=== PATIENT | female | born 2005 | race African-American/Black ===

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

== ENCOUNTER 2024-08-08 01:30 | Outpatient (CLI) | payer OTHER ==
[2024-08-08 01:39] VITALS: BP 119/61
[2024-08-08 03:15] VITALS: BP 99/57
[2024-08-08 06:18] VITALS: BP 91/52
== END 2024-08-08 06:31 | disposition other institution (70) ==
LOC: M LDO 01:30
PROVIDERS: ATTEND Specialist
DX: O47.03 False labor before 37 completed weeks of gestation, third trimester (principal); O99.343 Other mental disorders complicating pregnancy, third trimester; R45.851 Suicidal ideations; Z3A.28 28 weeks gestation of pregnancy
CPT/HCPCS: 59025; G0463

== ENCOUNTER 2024-08-08 06:35 | Emergency (ER) | payer OTHER ==
[2024-08-08 07:32] LABS: HEMATOCRIT 32.9 % (36.0-47.0); MEAN CORPUSCULAR HEMOGLOBIN 32.2 pg (27.0-33.0); MEAN CORPUSCULAR HGB CONC 33.4 g/dl (32.0-36.5); MEAN CORPUSCULAR VOLUME 96.2 fl (80.0-96.0); PLATELET COUNT, AUTOMATED 194 10^3/uL (150-450); RED BLOOD COUNT 3.42 10^6/uL (4.00-5.40); WHITE BLOOD COUNT 5.5 10^3/uL (4.0-10.0)
[2024-08-08 07:36] LABS: ETHYL ALCOHOL (ETHANOL) < 0.003 % (0.000-0.010)
[2024-08-08 07:37] LABS: SALICYLATE LEVEL < 3.0 MG/DL (<30)
[2024-08-08 07:41] LABS: ALBUMIN 2.7 G/DL (3.2-5.2); ALKALINE PHOSPHATASE 88 U/L (46-116); ALT/SGPT 13 U/L (7.0-40); AST/SGOT 13 U/L (<34); BILIRUBIN,DIRECT 0.2 MG/DL (<0.4); BILIRUBIN,TOTAL 0.8 MG/DL (0.3-1.2); BLOOD UREA NITROGEN 6 MG/DL (9-23); CALCIUM LEVEL 9.2 MG/DL (8.5-10.1); CARBON DIOXIDE LEVEL 23 MMOL/L (20-31); CHLORIDE LEVEL 109 MMOL/L (98-107); CREATININE FOR GFR 0.59 MG/DL (0.55-1.30); GLUCOSE, FASTING 73 MG/DL (60-100); POTASSIUM SERUM 4.2 MMOL/L (3.5-5.1); SODIUM LEVEL 136 MMOL/L (136-145); THYROID STIMULATING HORMONE 1.665 uIU/ML (0.48-4.17); TOTAL PROTEIN 6.7 G/DL (5.7-8.2)
[2024-08-08 07:59] LABS: AMPHETAMINES LEVEL URINE NEGATIVE (NEGATIVE); BARBITURATES URINE NEGATIVE (NEGATIVE); BENZODIAZEPINES URINE NEGATIVE (NEGATIVE); CANNABINOIDS URINE NEGATIVE (NEGATIVE); COCAINE METABOLITE URINE NEGATIVE (NEGATIVE); METHADONE URINE NEGATIVE (NEGATIVE); OPIATES URINE NEGATIVE (NEGATIVE); PHENCYCLIDINE URINE NEGATIVE (NEGATIVE)
[2024-08-08 10:46] VITALS: BP 117/61; TEMP 97.9; O2SAT 100
== END 2024-08-08 10:51 | disposition home or self-care (01) ==
LOC: M ED 06:35
DX: O99.343 Other mental disorders complicating pregnancy, third trimester (principal); F43.20 Adjustment disorder, unspecified; O99.013 Anemia complicating pregnancy, third trimester; D50.9 Iron deficiency anemia, unspecified

== ENCOUNTER 2024-09-17 17:57 | Outpatient (CLI) | payer OTHER ==
[~2024-09-17] VITALS: Ht 160 cm; Wt 92.7 kg
[2024-09-17 18:14] VITALS: BP 104/61
[2024-09-17 18:54] LABS: HEMATOCRIT 30.9 % (36.0-47.0); HEMOGLOBIN 10.3 g/dl (12.0-15.5); MEAN CORPUSCULAR HEMOGLOBIN 30.9 pg (27.0-33.0); MEAN CORPUSCULAR HGB CONC 33.3 g/dl (32.0-36.5); MEAN CORPUSCULAR VOLUME 92.8 fl (80.0-96.0); PLATELET COUNT, AUTOMATED 206 10^3/uL (150-450); RED BLOOD COUNT 3.33 10^6/uL (4.00-5.40); WHITE BLOOD COUNT 6.1 10^3/uL (4.0-10.0)
[2024-09-17] MEDS ORDERED: FERR325T3 PO (18:54)
[2024-09-17] MEDS ORDERED: PRENTAB9 PO (18:54)
[2024-09-17] MEDS ORDERED: FAMO20TA PO (18:54)
[2024-09-17] MEDS ORDERED: HOME MED LIST COMPLETE! XX SCH (19:00)
[2024-09-17 19:13] LABS: INR 1.09; PARTIAL THROMBOPLASTIN TIME 27.2 SECONDS (24.8-34.2); PROTHROMBIN TIME 14.4 SECONDS (12.5-14.5)
[2024-09-17 22:31] VITALS: BP 119/57
== END 2024-09-17 22:56 | disposition home or self-care (01) ==
LOC: M LDO 17:57
PROVIDERS: ATTEND Advanced Practice Midwife
DX: O99.891 Other specified diseases and conditions complicating pregnancy (principal); O99.343 Other mental disorders complicating pregnancy, third trimester; F32.A Depression, unspecified; R51.9 Headache, unspecified; Z3A.34 34 weeks gestation of pregnancy; Y92.9 Unspecified place or not applicable; Y93.9 Activity, unspecified; Y99.9 Unspecified external cause status
CPT/HCPCS: 36415; 59025; 76815; 76819; 76820; 85027; 85384; 85460; 85610; 85730; G0463

== ENCOUNTER → 2024-09-30 | Outpatient (REF) | payer OTHER ==
[~2024-09-30] MED LIST changes: +FAMO20TA PO; +FERR325T3 PO; +PRENTAB9 PO
== END ==
LOC: M PLALAB 10:10
PROVIDERS: ATTEND Nurse Practitioner Family
DX: Z36.85 Encounter for antenatal screening for Streptococcus B (principal); Z3A.35 35 weeks gestation of pregnancy

== ENCOUNTER 2024-10-04 02:50 | Outpatient (CLI) | payer OTHER ==
[~2024-10-04] VITALS: Ht 167.6 cm; Wt 93.2 kg
[2024-10-04 03:10] VITALS: BP 104/50
[2024-10-04 05:20] VITALS: BP 108/60
== END 2024-10-04 07:10 | disposition home or self-care (01) ==
LOC: M LDO 02:50
PROVIDERS: ATTEND Specialist
DX: O47.1 False labor at or after 37 completed weeks of gestation (principal); O09.513 Supervision of elderly primigravida, third trimester; Z3A.36 36 weeks gestation of pregnancy
CPT/HCPCS: 59025; G0463

== ENCOUNTER 2024-11-01 07:09 | Inpatient (IN) | payer OTHER ==
[2024-11-01] VITALS (51 sets, daily range): BP systolic 92–160; BP diastolic 44–89; O2SAT 98–100
[~2024-11-01] VITALS: Ht 162.6 cm; Wt 96.7 kg
[2024-11-01] MEDS ORDERED: TUMS500C PO (07:31)
[2024-11-01] MEDS ORDERED: COLA100C5 PO (07:31)
[2024-11-01] MEDS ORDERED: HOME MED LIST COMPLETE! XX SCH (07:35)
[2024-11-01 09:14] LABS: HEMATOCRIT 30.4 % (36.0-47.0); HEMOGLOBIN 9.9 g/dl (12.0-15.5); MEAN CORPUSCULAR HEMOGLOBIN 28.3 pg (27.0-33.0); MEAN CORPUSCULAR HGB CONC 32.6 g/dl (32.0-36.5); MEAN CORPUSCULAR VOLUME 86.9 fl (80.0-96.0); PLATELET COUNT, AUTOMATED 222 10^3/uL (150-450); WHITE BLOOD COUNT 5.7 10^3/uL (4.0-10.0)
[2024-11-01 10:12] LABS: HEPATITIS C VIRUS ABY INDEX 0.02 INDEX (<0.8)
[2024-11-01] MEDS ORDERED: METHYLERGONOVINE MALEATE 0.2MG/ML 1ML VIAL IM PRN (11:15)
[2024-11-01] MEDS ORDERED: OXYTOCIN DRIP 30 UNITS in IV 1 EA IV PRN (11:15)
[2024-11-01] MEDS ORDERED: TRANEXAMIC ACID INJection 1,000 MG in NS 100 ML IV PRN (11:15)
[2024-11-01] MEDS ORDERED: LIDOCAINE 1% MDV 20ML VIAL INFIL PRN (11:15)
[2024-11-01] MEDS ORDERED: CARBOPROST TROMETHAMINE 250 MCG/ML AMP IM PRN (11:15)
[2024-11-01] MEDS: LACTATED RINGER'S 1000 ML IV STA (11:23)
[2024-11-01] MEDS ORDERED: FENTANYL 2MCG/ML ROPIVACAINE 0.2% IN 0.9% NACL 100ML IVBAG As Ordered ONE (11:32)
[2024-11-01] MEDS ORDERED: EPIDURAL/PCA KEYS XX PRN (12:30)
[2024-11-01] MEDS ORDERED: ONDANSETRON 4MG 2ML VIAL IV PRN ×2 (12:30→19:10)
[2024-11-01] MEDS ORDERED: LR 500 ML IV PRN (12:30)
[2024-11-01] MEDS ORDERED: NALOXONE INJ 0.4MG/1ML VIAL IV PRN (12:30)
[2024-11-01] MEDS: FENTANYL/ROPIVACAINE/NACL BAG 100 ML EPIDURAL SCH (12:46)
[2024-11-01] MEDS: LR 1,000 ML IV SCH ×2 (12:56→19:10)
[2024-11-01] MEDS: ePHEDrine SULFATE 25 MG/5 ML(5MG/ML) SYRINGE IVP PRN (13:30)
[2024-11-01] MEDS: diphenhydrAMINE 50MG/ML VIAL IV PRN (13:56)
[2024-11-01] MEDS: OXYTOCIN DRIP 30 UNITS in IV 1 EA IV SCH (18:55)
[2024-11-01] MEDS ORDERED: IBUPROFEN 600MG TAB PO PRN (19:10)
[2024-11-01] MEDS ORDERED: CALCIUM CARBONATE 500 MG CHEW U/D PO PRN (19:10)
[2024-11-01] MEDS ORDERED: RHOGAM 300MCG (1500IU) INJ IM SCH (19:10)
[2024-11-01] MEDS ORDERED: ACETAMINOPHEN 325 MG TAB PO PRN (19:10)
[2024-11-01] MEDS ORDERED: ANUSOL HC CREAM 30GM TOP PRN (19:10)
[2024-11-01 19:40] LABS: CORD GAS HCO3 A 18.2 MMOL/L; CORD GAS PH A 7.145 UNITS; CORD GAS PO2 A 83.6 mmHg; CORD GAS TCO2 A 19.8 MMOL/L
[2024-11-01 19:41] LABS: CORD GAS ABE A -11.1; CORD GAS SBC A 15.9 MMOL/L
[2024-11-01 19:44] LABS: CORD GAS ABE V -8.7; CORD GAS HCO3 V 16.8 MMOL/L; CORD GAS PCO2 V 35.4 mmHg; CORD GAS PH V 7.295 UNITS; CORD GAS PO2 V 39.8 mmHg; CORD GAS SBC V 17.2 MMOL/L; CORD GAS TCO2 V 17.9 MMOL/L
[2024-11-01 19:45] LABS: CORD GAS O2 SAT V 83.8 %
[2024-11-01] MEDS: IBUPROFEN 800 MG TAB PO PRN (21:40)
[2024-11-01] MEDS: ACETAMINOPHEN 500 MG TAB PO PRN (23:16)
[2024-11-01] MEDS: DIBUCAINE 1% OINTMENT 30GM TOP PRN (23:17)
[2024-11-02 06:00] VITALS: BP 119/60; O2SAT 100
[2024-11-02] MEDS: PRENATAL VITAMINS CHEWABLE TABLET PO SCH (09:00)
[2024-11-02] MEDS ORDERED: FLUZONE VACCINE TRIVALENT PF(2024-25) 0.5ML SYRINGE IM.IMMUN ONE (10:00)
[2024-11-02 18:00] VITALS: BP 117/66; O2SAT 99
[2024-11-02] MEDS: DOCUSATE SODIUM 100MG CAPSULE PO PRN (20:21)
[2024-11-03 06:15] VITALS: BP 103/58; O2SAT 99
[2024-11-03] MEDS: MEASLES,MUMPS,RUBELLA VACCINE INJ (MMR-II) SC.IMMUN ONE (09:00)
[2024-11-03] MEDS ORDERED: ACET-683 PO (12:32)
[2024-11-03] MEDS ORDERED: IBUP80TA PO (12:32)
[2024-11-03] MEDS: FLUZONE VACCINE TRIVALENT PF(2024-25) 0.5ML SYRINGE IM.IMMUN ONE (12:45)
== END 2024-11-03 12:40 | disposition home or self-care (01) | DRG 807 ==
LOC: M LDO 07:09 → M LDI 08:15 → M OBS 21:05
PROVIDERS: ADMIT Obstetrics & Gynecology; ATTEND Obstetrics & Gynecology
PROC: 10E0XZZ Delivery of Products of Conception, External Approach (ICD-10-PCS; principal; 2024-11-01)
PROC: 0HQ9XZZ Repair Perineum Skin, External Approach (ICD-10-PCS; 2024-11-01)
DX: O48.0 Post-term pregnancy (principal); Z37.0 Single live birth; Z3A.40 40 weeks gestation of pregnancy; O70.0 First degree perineal laceration during delivery

== ENCOUNTER → 2025-07-22 | Outpatient (REF) | payer OTHER ==
[~2025-07-22] MED LIST changes: +ACET-683 PO; +COLA100C5 PO; +IBUP80TA PO; +TUMS500C PO
[2025-07-22 15:30] LABS: Trichomonas vaginalis (AMP) NOT DETECTED (NEGATIVE)
[2025-07-22 15:53] LABS: GC DNA AMPLIFICATION NEGATIVE (NEGATIVE)
== END ==
LOC: M SFHCWAGY 12:39
PROVIDERS: ATTEND Obstetrics & Gynecology
DX: Z01.419 Encounter for gynecological examination (general) (routine) without abnormal findings (principal); Z11.3 Encounter for screening for infections with a predominantly sexual mode of transmission; Z77.9 Other contact with and (suspected) exposures hazardous to health
CPT/HCPCS: 87661; 87810; 87850; G0123